=== PATIENT | male | born 1935 | race Asian ===

== ENCOUNTER 2024-09-22 18:53 | Emergency (ER) | payer OTHER, SELFPAY ==
[2024-09-22 19:01] VITALS: BP 115/71
[2024-09-22 19:36] VITALS: BMI 18.2
[2024-09-22 19:57] LABS: Hematocrit 33.4 % (39.0-52.0); Hemoglobin 11.2 g/dL (13.0-18.0); Mean Corp Hgb Conc. 33.5 g/dL (33.0-37.0); Mean Corpuscular Volume 90.8 fL (80.0-94.0); Nucleated Red Blood Cells % 0 % (-); Platelet Count 151 10^3/uL (130-400); Red Cell Dist. Width 13.2 % (11.5-14.5)
[2024-09-22] MEDS: DECADRON 10 MG IV (19:58)
[2024-09-22] MEDS: VAPONEFRIN NEBS 0.5 ML INH (19:59)
[2024-09-22 20:06] VITALS: BP 122/64
[2024-09-22 20:10] LABS: ALT (SGPT) 15 U/L (0-50); AST (SGOT) 22 U/L (17-59); Albumin 4.1 g/dl (3.5-5.0); Alkaline Phosphatase 62 U/L (38-126); Blood Urea Nitrogen 19 mg/dl (9-20); Calcium 9.6 mg/dl (8.4-10.2); Carbon Dioxide 25 mmol/L (22-30); Chloride 103 mmol/L (98-107); Estimated Creatinine Clearance 33 ml/min; Glucose 209 mg/dl (70-99); Potassium 4.7 mmol/L (3.5-5.1); Sodium 135 mmol/L (135-145); Total Protein 7.2 g/dl (6.3-8.2); eGFR > 60.00
[2024-09-22] MEDS: GLYCERIN SUPPOSITORY ADULT 1 SUPP RECTAL (21:00)
[2024-09-22 21:02] VITALS: BP 127/72
--- NOTE | 2024-09-22 21:30 | ED.GENMED ---
History of Present Illness
General
Chief Complaint: Airway Problem
Time Seen by Provider: 09/22/24 19:29
History of Present Illness
History of Present Illness:
89-year-old male presents to the emergency department for evaluation of difficulty breathing as well as constipation. He is being worked up as an outpatient for a large left neck mass. He is scheduled to see ENT next week for this at [place].
He also reports no bowel movements for a week but admits to poor p.o. intake over the past several days. No chest pain
[facility] showing 'enlarged heterogenous soft tissue mass at the left aryepiglottic region measuring 4.9 x 5.3 x 5.4 cm which extends superiorly up to the level of the superior aspect of the
epiglottis on the left side and inferiorly extends laterally in the neck up to the upper surface of the left thyroid lobe with a central area of necrosis. The left side of the epiglottis and the base of the epiglottis is involved with this large
mass over the subglottic region appears intact. There is thickening of the left side of the vocal cord'
Review of Systems
Review of Systems
Allergies reviewed?: Yes
All Other Systems: ROS reviewed and negative except as documented in HPI and ROS
Phy Exam
Physical Exam
Physical Exam:
GEN: Well appearing, NAD, WDWN
HEENT: Oral mucosa moist, no scleral icterus. Oropharynx patent, no stridor audible, no secretions
Cardiac: Regular rate and rhythm, no murmur
Lung: No respiratory distress, no tachypnea
Abdomen: Soft, grossly nontender
MSK: No gross deformity or injuries
Skin: Good color, no pallor or jaundice, no rashes
Neuro: AO x3, moves all extremities freely
Psych: Calm, cooperative
Course
Orders/Labs/Results
Orders:
Orders
09/22/24 19:44
Complete Blood Count/With Diff Urgent
Comprehensive Metabolic Panel Urgent
09/22/24 19:51
Dexamethasone Sod Phosphate [Decadron] 10 mg IV NOW STA
Racepinephrine [Vaponefrin Nebs] 0.5 ml INH R NOW STA
09/22/24 20:07
Glycerin [Glycerin Suppository Adult] 1 supp RECTAL NOW STA
09/22/24 20:09
CR Chest - 2 Views Urgent
Comment:
Reason For Exam: SOB
09/22/24 21:30
Magnesium Citrate [Citroma] 300 ml PO ONCE ONE
Abnormal Lab Results
09/22/24
19:44
RBC 3.68 L 10^6/uL
(4.70-6.10)
Hgb 11.2 L g/dL
(13.0-18.0)
Hct 33.4 L %
(39.0-52.0)
MPV 11.1 H fL
(7.4-10.4)
Absolute Monos (auto) 0.8 H 10^3/uL
(0.1-0.6)
Monocytes % 10.8 H %
(1.7-9.3)
Glucose 209 H mg/dl
(70-99)
09/22/24 19:44
09/22/24 19:44
Vital Signs
Initial and Last Documented VS:
Initial Vital Signs
Temp Pulse Resp BP Pulse Ox
97.6 F 102 20 115/71 98
09/22/24 19:01 09/22/24 19:01 09/22/24 19:01 09/22/24 19:01 09/22/24 19:01
Last Documented Vital Signs
Temp Pulse Resp BP Pulse Ox
97.6 F 79 20 127/72 99
09/22/24 19:01 09/22/24 21:02 09/22/24 19:01 09/22/24 21:09/22/24 21:30
MDM/Problems Addressed
MDM/Problems Addressed:
Patient CT scan finding from 2 days ago certainly is concerning however the presence of patency of the supraglottic region is reassuring. The patient is acutely well but does appear chronically functionally deconditioned. I reviewed the CT
findings with the ENT on-call who feel that this mass is best managed at a [facility]. No emergent airway compromise at this time. We did treat him with steroids in the hopes that this may stave off any airway compromise while
awaiting outpatient follow-up.
*Pulse Oximetry
SaO2: 99
Oxygen Mode of Delivery: Room air
Patient hypoxic: no
*Critical Care Note
Total Time (30-74mins, 75-104mins- exclusive of procedures): Not Applicable
ED Attending Note
-
Portions of this chart may have been created with voice recognition software.� Occasional wrong word or��sound alike� substitutions may have occurred due to the inherent limitations of voice recognition software.
Discharge Plan
Departure
Patient Disposition: Home (Routine Discharge)
Date of Disposition: 09/22/24
Time of Disposition: 21:30
Patient with high blood pressure during this ER visit?: No
Discharge Problem:
Mass in neck, Constipation
Instructions: Constipation in adults
Prescriptions:
New
methylprednisolone [Medrol (Saul)] 4 mg tablets,dose pack
See Rx Instructions .ROUTE .COMPLEX Qty: 21 0RF
Rx Instructions:
orally per package directions
No Action
polyethylene glycol 3350 17 GRAMS powder in packet
17 grams PO DAILY
Patient Comments:
1 spoon/ daily
metformin 1,000 MG tablet
1,000 mg PO BID
ntlyekbs-sul-JW-lycopen-lutein [Centrum Silver] 1 EACH tablet
1 ea PO DAILY
cholecalciferol (vitamin D3) 1,000 UNITS tablet
1,000 units PO DAILY
ciprofloxacin HCl 250 MG tablet
250 mg PO BID Qty: 6 0RF
Referrals:
Cal Vega, [Family Provider, Family Practice]
Activity Restrictions/Additional Instructions:
Use half of the magnesium citrate, and if no improvement, try the other half after 4-6 hours
The steroids may help to improve your trouble breathing, but in all likelihood this will not change much given the size of the mass in your neck
Follow up with your ENT as planned
Interventions
Interventions:
*Risk Screen - Suicide Last Done: 09/22/24 19:01
*General Assessment Last Done: 09/22/24 19:01
*Neglect/Abuse Screening Last Done: 09/22/24 19:01
*ED- Fall Risk Assessment Last Done: 09/22/24 21:51
*Nursing Disposition Last Done: 09/22/24 21:51
ED- Cardiac Assessment Last Done: 09/22/24 19:45
ED- Pulmonary Assessment Last Done: 09/22/24 19:45
Discharge Date and Time
Discharge Date/Time: 09/22/24 21:51
Print Language: SYRIAC
[2024-09-22] MEDS: CITROMA 300 ML PO (21:37)
== END 2024-09-22 21:51 | disposition home or self-care (01) ==
LOC: EMR 18:53
PROVIDERS: EMERGENCY PHYSICIAN Emergency Medicine; FAMILY PHYSICIAN Family Medicine
DX: K59.00 Constipation, unspecified (principal); R22.1 Localized swelling, mass and lump, neck
CPT/HCPCS: 99284; 96374; 94640; 71046; 80053; 85025